=== PATIENT | female | born 2000 ===

== ENCOUNTER 2022-02-14 09:58 | Outpatient (CLI) | payer OTHER | END 2022-02-14 12:34 | disposition home or self-care (01) | LOC: PRENATAL 09:58 | PROVIDERS: ATTEND Obstetrics & Gynecology Maternal & Fetal Medicine | DX: O36.80X0 Pregnancy with inconclusive fetal viability, not applicable or unspecified (principal); Z36.0 Encounter for antenatal screening for chromosomal anomalies; Z88.6 Allergy status to analgesic agent; Z3A.14 14 weeks gestation of pregnancy ==

== ENCOUNTER 2022-03-31 09:47 | Outpatient (CLI) | payer OTHER | END 2022-03-31 10:45 | disposition home or self-care (01) | LOC: PRENATAL 09:47 | PROVIDERS: ATTEND Obstetrics & Gynecology Maternal & Fetal Medicine | DX: O35.0XX0 Maternal care for (suspected) central nervous system malformation in fetus, not applicable or unspecified (principal); O35.3XX0 Maternal care for (suspected) damage to fetus from viral disease in mother, not applicable or unspecified; Z88.6 Allergy status to analgesic agent; Z3A.20 20 weeks gestation of pregnancy ==